=== PATIENT | female | born 1950 | race Caucasian/White ===

== ENCOUNTER → 2018-09-12 | Outpatient (CLI) | payer OTHER ==
--- NOTE | ~2018-09-12 | O ---
[facility] [place] [address] OPERATIVE REPORT Name: RACHEL SYED Room #: [facility].#: [id number] Admission: 09/12/18 Attend Phys: Rodri Aguilera MD Discharge: Date of : 50 Report #: [id number] THIS REPORT FOR: //name// CC: LUCINDA CARRILLO FAM unknown Rodri Aguilera MD PRIMARY CARE PHYSICIAN: Rodri Aguilera M.D. CLINICAL HISTORY: This is a 68-year-old white female with bronchiectasis with chronic bronchitis. Diagnostic bronchoscopy was performed to obtain bronchoalveolar lavage specimens. POSTOPERATIVE DIAGNOSIS: Normal airways. DESCRIPTION OF PROCEDURE: Following obtained consent and risks and benefits being explained to the patient, which include infection, bleeding and pneumothorax, procedure performed in the endoscopy suite. The patient received a total of 2 mg of Versed IV, fentanyl 50 mcg IV. She also received 2% aerosolized lidocaine to the upper airways. The patient was also given 2% and 1% lidocaine to the upper airways. Then, a flexible fiberoptic bronchoscope was then introduced through left naris without difficulty. The epiglottis was normal. Vocal cords were normal. Trachea was normal. Analisa was normal. Left main stem bronchus, left upper lobe and left lower lobe were normal. Right mainstem bronchus, right upper lobe, right middle lobe and right lower lobe were normal. Bronchoalveolar lavage was performed at the right middle lobe. Six aliquots of 20 mL syringe was used. We had adequate return in the specimen cup. Vital signs and saturation throughout the study were within normal range. The patient tolerated the procedure well. No complications noted. Bronchoalveolar lavage specimen will be sent for microbiologic studies. <ELECTRONICALLY SIGNED> By: Ryan Guzman MD 09/13/18 1715 [id number] Ryan Guzman MD /nt
== END ==
LOC: CATH 06:27
DX: J42 Unspecified chronic bronchitis (principal); J47.9 Bronchiectasis, uncomplicated

== ENCOUNTER 2019-05-23 05:35 | Observation (INO) | payer OTHER ==
[~2019-05-23] VITALS: Ht 160 cm; Wt 49.0 kg
--- NOTE | ~2019-05-23 | HC ---
[facility] [place] [address] CONSULTATION Name: RACHEL SYED Room #: 217-P [facility] M.R.#: [id number] Admission: 05/23/19 ������������������ Attend Phys: Abdiaziz Morris MD Discharge: 05/24/19 ������������������ Date of : 50 Report #: [id number] THIS REPORT FOR: //name// CC: Alec Allen [facility] physician/PCP Abdiaziz Morris DATE OF SERVICE: 05/24/2019 INFECTIOUS DISEASES CONSULTATION REASON FOR CONSULTATION: I was asked to evaluate concerning bronchiectasis and a history of C. difficile colitis. HISTORY OF PRESENT ILLNESS: The patient was a 69-year-old with underlying history of coronary artery disease, bronchiectasis, who has had progressive symptoms over the last year. She has been on and off antibiotics and corticosteroids without benefit. She had a bronchoscopy performed in 08/2018, which showed previous yeast and Aspergillus. This was not a predominant finding and it was recommended that she continue with her current treatment program. Over the last several months, she has had progressive decline with increased infiltrates seen on her CT scan. She has had decrease in exercise capacity, although she does not require oxygen. She has had no hemoptysis. No pleuritic chest pain. No fever, chills or sweats. She was treated with amoxicillin several weeks ago, without benefit. She has been on azithromycin 3 days a week over the last several months. Plan was for bronchoscopy, both therapeutic and diagnostic. This was performed yesterday and she became hypoxic, requiring oxygen at 5 liters per nasal cannula. She was then hospitalized for observation. Oxygen requirements now are back to her baseline. She is off supplemental oxygen. She has had loose cough, with no sputum production. Overall, she feels back to her baseline. She is ambulatory. Denies any nausea, vomiting or abdominal pain. She has loose stools. She has had 3 episodes of C. difficile colitis in the past year. These have all been associated with other episodes of antibiotic treatment for her lungs. REVIEW OF SYSTEMS: A 10-point review of systems was negative, other than what is described above. ALLERGIES: NONSTEROIDAL ANTI-INFLAMMATORIES AND HYDROCODONE. MEDICATIONS: As noted on her JAN, now on Solu-Medrol and Zosyn. PAST MEDICAL HISTORY: Coronary artery disease, hypertension, gastroesophageal reflux, coronary bypass grafting, , appendectomy, cholecystectomy, partial colectomy for benign disease, hysterectomy, oophorectomy, pneumonia and dental extractions, now with full dentures. [address] [address] CONSULTATION Name: RACHEL SYED Room #: 217-P [facility] [id number] Admission: 05/23/19 ������������������ Attend Phys: Abdiaziz Morris MD Discharge: 05/24/19 ������������������ Date of : 50 Report #: [id number] FAMILY HISTORY: Noncontributory. SOCIAL HISTORY: She stopped smoking in February. No significant alcohol intake. No HIV risk factors. No tuberculosis exposure. PHYSICAL EXAMINATION: VITAL SIGNS: She is afebrile and hemodynamically stable, alert and cooperative and pleasant, in no acute distress. She is ambulatory. SKIN: Without rash or decubitus. No palpable adenopathy. HEENT: Eyes without scleral icterus or conjunctivitis. Mouth without mucositis. She had upper and lower dentures. NECK: Supple, with no JVD or mass. HEART: Regular, without murmur, gallop or rub. LUNGS: Decreased breath sounds bilaterally, with no consolidation. ABDOMEN: Soft, nontender. No hepatosplenomegaly or mass. EXTREMITIES: With no clubbing, cyanosis or edema. Pulses were normal. NEUROLOGIC: Alert and cooperative. Cranial nerves intact. Strength in the upper and lower extremities normal, with normal sensation. PSYCHIATRIC: Mood is normal. LABORATORY DATA: Laboratory studies reviewed with C. difficile PCR negative. Bronchoscopy samples are pending. IMPRESSION: A 69-year-old with advanced bronchiectasis, progressive disease, not responding to outpatient therapy. Unclear yet if her progression is due to poor clearance or related to fungal or mycobacterial therapy. She did decompensate following her bronchoscopy, but has now seemed to recover back to her baseline. I see no other toxicities. C. difficile recurrence has been an issue, but seems stable at this point. Other underlying disease process is yet to be established. I have not seen her previous outpatient workup to assess for immunodeficiency. Cystic fibrosis would be an outside possibility. No other structural abnormalities were seen on bronchoscopy. RECOMMENDATIONS: The patient will go back on oral antibiotic therapy and corticosteroids for the meantime. While on systemic therapy, would use cholestyramine and monitor closely for evidence of Clostridium difficile recurrence. Would follow up in the outpatient clinic in 10-14 days. We would like to have her outpatient workup to further evaluate any other potential reversible factors. We will continue with postural drainage and percussion. Case was discussed with Pulmonary Medicine, who agrees with this approach. She will continue with instruction on postural drainage and percussion. She will be [facility] [address] [place] [address] CONSULTATION Name: RACHEL SYED [id number] Admission: 05/23/19 ������������������ Attend Phys: Abdiaziz Morris MD Discharge: 05/24/19 ������������������ Date of : 50 Report #: [id number] getting a percussion vest to be used at home. We will see how she does over the next 10-14 days and adjust from there. ��������������������������������������������� ���������������������������������������� By: ��������������������������������������������� 1609 [id number] Agustín Bain MD /nt
[~2019-05-23 05:35] MED LIST: ASPIR 8181 M1 PO; AZITHROMYCIN500 MG PO; BETA CAROT10000 UNIT PO; CALCIUM 500 +1 EAC5 PO; CARVEDILOL12.5 MG PO; LISINOPRIL-HCT1 EAC1 PO; SYMBICORT160 MCG/4. INH; VITAMIN A8000 UNI1 PO; VITAMIN D-32000 UNIT PO; VITAMIN E400 UNIT PO; ZEGERID 20 MG1 EACH PO; ZINC50 M2 PO
--- NOTE | 2019-05-23 07:36 | EKG ---
[place] [address] Related Content Database (RCDb)[facility] [address] ELECTROCARDIOGRAM REPORT Name: RACHEL SYED Room #: 150-2 [facility]#: [id number] ������������������ Admission: 05/23/19 ������������������ Attend Phys: Abdiaziz Morris MD Discharge: ������������������ Date of : 50 Report #: [id number] ����������������������������������������������������������������� [id number] THIS REPORT FOR: //name// [facility] Test Date: 2019-05-23 Test Time: 07:28:39 Pat Name: RACHEL SYED Department: Room: 150 2 Gender: F Ux Specialist: santos : 1950 Requested By: Abdiaziz Morris Order Number: [id number] MD: Simba Walker Measurements Intervals [place] Rate: 67 P: 12 VA: 132 QRS: 63 QRSD: 102 T: 38 QT: 414 QTc: 437 Interpretive Statements Sinus rhythm Low voltage, extremity leads No previous ECG available for comparison Electronically Signed On 05-23-2019 7:36:26 CDT by Simba Walker [email or web address] ��������������������������������������������� <ELECTRONICALLY SIGNED> ���������������������������������������� By: Simba Walker MD, [facility] ��������������������������������������������� 05/23/19 0736 7 Simba Walker MD, FACC /EPI
[2019-05-23 08:38] VITALS: BP 141/62
--- NOTE | 2019-05-23 19:33 | NUR ---
69YO FEMALE ADMITTED TO 217 FROM ED. VSS, ALERT AND ORIENTED X4, PATIENT HAD BRONCHOSCOPY AND IS ON 4L O2. NO COMPLAINTS OF PAIN. WILL CONTINUE TO MONITOR.
[2019-05-23 20:05] VITALS: BP 126/54
[2019-05-24 04:35] VITALS: BP 113/54
--- NOTE | 2019-05-24 05:38 | NUR ---
END OF SHIFT SUMMARY: Pt has had quiet night. Up ad mere in room. Has had several soft unformed brown stools. Specimen sent for c.diff, awaiting results. Pt remains on 2 liter nasal canula, sat > 90%. Breath sounds remain diminished throughout. Voiding without difficulty. Monitor remains sinus rhythm, sinus tach with activity up to 118.
[2019-05-24 07:40] VITALS: BP 111/48
--- NOTE | 2019-05-24 11:29 | NUR ---
Assess for wt loss and change in appetite. Admitted following scheduled bronchoscopy for acute respiratory failure and pneumonia. Pt reports wt loss about 10 lb from reported usual 120 lb but states most was from recent dentures placement in 02/2019 and was having difficulty eating. Appetite fair with current illness but tolerated breakfast. Usually drinks carnation instant breakfast at home. Hoping to go home today, but states will drink an Ensure if not discharged. Low nutrition risk
[2019-05-24 11:41] VITALS: BP 114/47
--- NOTE | 2019-05-24 12:06 | PATH ---
[facility] [address] [place] [address] PATHOLOGY RPT PROCEDURE Name: RACHEL SYED Room #: 217-P ADM Irlanda M.R.#: [id number] ������������������ Admission: 05/23/19 ������������������ Date of : 50 Discharge: Report #: [id number] Path Case #: [id number] Note [facility] Accession Number: [id number] TESTS RESULT FLAG UNITS REF RANGE LAB Clinician Provided Cytology Information No. of containers..01 Other (Miscellaneous) Source: BAL LLL DIAGNOSIS: BAL LLL NEGATIVE FOR MALIGNANT CELLS. NORMAL BRONCHIAL CELLS AND MACROPHAGES ARE PRESENT. MARKED ACUTE INFLAMMATION. Pathologist ICD10: 02 R91.8 Signed out by: Aliya Moses MD, Pathologist NPI- [id number] Performed by: Malissa Buenrostro, Food Technology Teacher ([facility]) Gross description: 01 35ML, TATY, CLOUDY /LCS FLAG LEGEND: L-Low Normal,H-High Normal,LL-Alert Low,HH-Alert High <-Panic Low,>-Panic High,A-Abnormal,AA-Critical Abnormal Performed at: [address] [place] [address] Eliezer Haji MD, [address] [address] Aliya Moses MD, Specimen Comment: A courtesy copy of this report has been sent to Specimen Comment: [phone]. Specimen Comment: Report sent to Performed at: 01 [facility] [address] [place] [address] [address], [place], [place] [id number] MD Eliezer Haji MD Phone: [phone]
[2019-05-24 16:02] VITALS: BP 137/57
[2019-05-24 17:19] VITALS: BP 137/57
[2019-05-24 17:36] VITALS: BP 137/57
--- NOTE | 2019-05-24 18:52 | NUR ---
ASSESSMENT CHARTED, NO COMPLAINTS OF PAIN, NO SOA, VSS, ALERT AND ORIENTED, UP AD AMANDA TO BR. PATIENT DISCHARGED TO HOME, GIVEN DISCHARGE INSTRUCTIONS AND STATED UNDERSTANDING. PATIENTS NIECE ACCOMPANIED PATIENT OUT OF HOSPITAL.
== END 2019-05-24 18:34 | disposition home or self-care (01) ==
LOC: CATH 05:35 → TBA 05:35 → CATH 11:07 → 2N 14:03 → CATH 14:35 → 2N 05-24 18:34
PROVIDERS: ADMIT Hospitalist
DX: J47.9 Bronchiectasis, uncomplicated (principal); R91.1 Solitary pulmonary nodule; Z88.5 Allergy status to narcotic agent; Z88.6 Allergy status to analgesic agent; I25.10 Atherosclerotic heart disease of native coronary artery without angina pectoris; I10 Essential (primary) hypertension; K21.9 Gastro-esophageal reflux disease without esophagitis; Z98.890 Other specified postprocedural states; Z90.49 Acquired absence of other specified parts of digestive tract; Z90.710 Acquired absence of both cervix and uterus; Z87.891 Personal history of nicotine dependence; J96.91 Respiratory failure, unspecified with hypoxia; J18.9 Pneumonia, unspecified organism; Z79.899 Other long term (current) drug therapy; I25.2 Old myocardial infarction; Z90.89 Acquired absence of other organs
CPT/HCPCS: 50010; 70005